=== PATIENT | female | born 1965 | race Caucasian/White ===

== ENCOUNTER 2024-11-20 22:35 | Emergency (ER) | payer OTHER ==
[~2024-11-20] VITALS: Ht 160 cm; Wt 77.1 kg
[~2024-11-20 22:35] MED LIST: ARIP10TA9 PO; ATEN50TA PO; ESOM40CA PO; INSU3INS6 SQ; OMEP20TA5 PO; SITA1TAB2 PO; SITA50TA PO
[2024-11-20 23:13] LABS: BASOPHILS % (AUTO) 0.7 % (0.0-2.0); EOSINOPHILS % (AUTO) 1.4 % (0.0-7.0); HEMATOCRIT 36.4 % (31.2-41.9); HEMOGLOBIN 12.2 g/dL (10.9-14.3); LYMPHOCYTES # (AUTO) 0.3 K/uL (0.8-4.8); LYMPHOCYTES % (AUTO) 8.8 % (20.5-51.5); MEAN CORPUSCULAR HEMOGLOBIN 28.7 uug (24.7-32.8); MEAN CORPUSCULAR HGB CONC 34 g/dL (32.3-35.6); MEAN CORPUSCULAR VOLUME 85.7 fL (75.5-95.3); MONOCYTES # (AUTO) 0.2 K/uL (0.1-1.30); MONOCYTES % (AUTO) 5.1 % (0.0-11.0); NEUTROPHILS # (AUTO) 2.5 K/uL (1.8-8.9); PLATELET COUNT (AUTO) 146 K/uL (179-408); RED BLOOD CELL COUNT(AUTO) 4.25 MIL/uL (3.63-4.92); RED CELL DISTRIBUTION WIDTH 13.8 % (12.3-17.7)
[2024-11-20 23:14] LABS: DIFFERENTIAL COMMENT 1
[2024-11-20] MEDS: ACETAMINOPHEN 325 MG TABLET PO ONE (23:19)
[2024-11-20] MEDS: ONDANSETRON 4 MG/2 ML VIAL IV ONE (23:19)
[2024-11-20] MEDS: IV NS 1000 ML 1,000 ML IV ONE (23:20)
[2024-11-20 23:21] LABS: CALCIUM 10.2 mg/dL (8.5-10.1); CREATININE 0.9 mg/dL (0.6-1.3); POTASSIUM 4.7 mmol/L (3.5-5.1)
[2024-11-20 23:27] LABS: ALBUMIN 3.7 g/dL (3.4-5.0); BILIRUBIN,DIRECT 0.2 mg/dL (0.0-0.2); BILIRUBIN,TOTAL 0.6 mg/dL (0.2-1.0); TOTAL PROTEIN, SERUM 7.7 g/dL (6.4-8.2)
[2024-11-20 23:32] LABS: LACTIC ACID 2.3 mmol/L (0.4-2.0)
[2024-11-20 23:41] LABS: *BILIRUBIN,URIN NEGATIVE (NEGATIVE); *BLOOD, URINE 1+ (NEGATIVE); *CLARITY,URINE CLEAR (CLEAR); *COLOR,URINE YELLOW (YELLOW); *KETONES,URINE NEGATIVE (NEGATIVE); *UROBILINOGEN,URINE 0.2 E.U./dl (NORMAL); LEUKOCYTE ESTERASE ,URINE NEGATIVE (NEGATIVE); NITRITE, URINE NEGATIVE (NEGATIVE); PH,URINE 6.5 (5.0-8.0); UGLUCOSE NEGATIVE (NEGATIVE)
[2024-11-20] MEDS ORDERED: CEFEPIME HCL 1 G VIAL ONE (23:41)
[2024-11-20 23:47] LABS: *PROTEIN,URINE 3+ (NEGATIVE)
[2024-11-20] MEDS ORDERED: ISOS60TA72 PO (23:52)
[2024-11-20] MEDS ORDERED: INSU100I26 SQ (23:52)
[2024-11-20] MEDS ORDERED: AMLO2.5T4 PO (23:52)
[2024-11-20] MEDS ORDERED: SITA1TAB6 PO (23:52)
[2024-11-20] MEDS ORDERED: METF-495 PO (23:52)
[2024-11-20 23:57] LABS: BACTERIA,URINE FEW /HPF (NONE SEEN); SQUAMOUS EPITHELIAL CELL,UR MODERATE /HPF (NONE SEEN); WBC,URINE 0-3 /HPF (0-3)
[2024-11-21] MEDS: CEFEPIME HCL 2 G in IV DEXTROSE 5% 100 ML IV ONE (00:03)
[2024-11-21] MEDS: IV NORMAL SALINE 1000 ML BAG IV ONE (00:03)
[2024-11-21 00:30] VITALS: TEMP 98.5
[2024-11-21 02:31] VITALS: O2SAT 95
== END 2024-11-21 03:40 | disposition short-term general hospital (02) ==
LOC: ER 22:35
DX: A41.9 Sepsis, unspecified organism (principal); R65.20 Severe sepsis without septic shock; R11.0 Nausea; R06.02 Shortness of breath; R10.9 Unspecified abdominal pain; E11.9 Type 2 diabetes mellitus without complications; E78.5 Hyperlipidemia, unspecified; F17.200 Nicotine dependence, unspecified, uncomplicated; F32.A Depression, unspecified; I10 Essential (primary) hypertension; Z79.4 Long term (current) use of insulin; Z79.84 Long term (current) use of oral hypoglycemic drugs; Z79.899 Other long term (current) drug therapy; Z88.5 Allergy status to narcotic agent; Z88.6 Allergy status to analgesic agent; Z88.7 Allergy status to serum and vaccine
CPT/HCPCS: 99291; 74176; 96375; 80076; 80048; 81001; 85025; 84145; 85730; 87040 ×2; 87086; 36415 ×2; 71045; 83605 ×2; 96365; 76705; 96361; J0692 ×2; J2405; J7040 ×3; A4606; A4663